=== PATIENT | male | born 1955 | race American Indian/Alaskan Native ===

== ENCOUNTER 2017-11-10 12:52 | Emergency (ER) | payer SELFPAY ==
[2017-11-10] MEDS ORDERED: TORADOL IM ONE (14:36)
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
--- NOTE | 2017-11-10 16:26 | XRay Report ---
FINAL REPORT EXAM: XR SPINE THORACIC 2V HISTORY: fall from ladder COMPARISON: None. TECHNIQUE: Two views of the thoracic spine FINDINGS: There is mild anterior wedging of a few lower thoracic vertebral bodies, likely degenerative. There is diffuse intervertebral disc space narrowing with anterior osteophyte formation. No definite acute fracture. The paravertebral soft tissues are normal. IMPRESSION: Mild anterior wedging of a few lower thoracic vertebral bodies, likely degenerative. Multilevel osteophyte formation. No definite acute fracture or dislocation.
--- NOTE | 2017-11-10 17:05 | XRay Report ---
FINAL REPORT EXAM: XR SPINE CERVICAL 2-3V HISTORY: fall from ladder COMPARISON: None. TECHNIQUE: Four views of the cervical spine FINDINGS: There is normal alignment without acute fracture or dislocation. The vertebral body heights are maintained. The posterior elements are intact. There is mild facet arthropathy. The paravertebral soft tissues are normal. The airway is patent. The soft tissues are normal. IMPRESSION: Mild degenerative changes of the cervical spine without acute fracture or dislocation.
--- NOTE | 2017-11-10 17:08 | XRay Report ---
FINAL REPORT EXAM: XR SPINE LUMBOSACRAL 2-3V HISTORY: fall from ladder COMPARISON: None. TECHNIQUE: Three views of the lumbar spine FINDINGS: There is normal alignment without acute fracture or dislocation. The vertebral body heights are maintained. There is mild diffuse intervertebral disc space narrowing with anterior osteophyte formation there is mild diffuse facet arthropathy. The paravertebral soft tissues are normal. IMPRESSION: Degenerative changes of the lumbar spine without acute fracture or dislocation.
[2017-11-10 18:06] VITALS: BP 163/107
== END 2017-11-10 18:31 | disposition home or self-care (01) ==
LOC: ED 12:52
DX: S16.1XXA Strain of muscle, fascia and tendon at neck level, initial encounter (principal); M51.35 Other intervertebral disc degeneration, thoracolumbar region; R03.0 Elevated blood-pressure reading, without diagnosis of hypertension; M25.511 Pain in right shoulder; W11.XXXA Fall on and from ladder, initial encounter; Y93.89 Activity, other specified; Y99.8 Other external cause status; Y92.009 Unspecified place in unspecified non-institutional (private) residence as the place of occurrence of the external cause
CPT/HCPCS: 72040; 72070; 72100; 96372; 99283; J1885